=== PATIENT | female | born 1975 | race Caucasian/White ===

== ENCOUNTER 2021-11-14 14:48 | Emergency (ER) | payer OTHER, SELFPAY ==
[2021-11-14 15:37] VITALS: BP 154/93; PULSE 80; RESP 18; TEMP 36.6; O2SAT 100; BMI 20.5
--- NOTE | 2021-11-14 16:20 | USR_ITS ---
PROCEDURE INFORMATION: Exam: US Duplex Left Lower Extremity Veins, Limited Exam date and time: 11/14/2021 4:43 PM Age: 45 years old Clinical indication: Pain; Leg, lower; Left; Prior surgery; Surgery date: 1-6 months; Surgery type: Venous ablation in July 2021. ; Additional info: Redness, swelling, palpable cord TECHNIQUE: Imaging protocol: Real-time Duplex ultrasound of the Left Lower Extremity with 2-D rodriguez scale, color Doppler flow and spectral waveform analysis with image documentation. Limited exam focused on the left lower extremity veins. COMPARISON: US pelvic with transvaginal 09/27/2015 11:04 AM FINDINGS: Left deep veins: Unremarkable. The common femoral, femoral, proximal profunda femoral and popliteal veins are patent without thrombus. Normal Doppler waveforms. Normal compressibility and/or augmentation response. Left superficial veins: Superficial thrombus within the great saphenous vein proximal to the great saphenous vein common femoral vein junction extending through the calf, as well as within a varicosity within the left calf. Soft tissues: Unremarkable. US/CV venous duplex [facility] [id number] IMPRESSION: No evidence of deep vein thrombosis. Superficial thrombus within the great saphenous vein within a varicosity within the left calf.
--- NOTE | 2021-11-14 16:21 | ED_ITS ---
Documented by User: [email or web address] Herrera 11/14/21 16:46 HPI - Extremity Problem General: Chief complaint: Extremity Problem,Nontraumatic Stated complaint: poss bloodclot Time Seen by Provider: 11/14/21 15:08 Source: patient Mode of arrival: ambulatory Limitations: no limitations History of Present Illness: Patient is a nice 45-year-old female presents to ED today with complaint of left lower extremity area that is red and sore to the touch. Patient states while at work she began developing a burning sensation to her left lower leg and immediately began noticing some redness and swelling. Patient states she does have a history of blood clots when she was 17 years old. She states she is not currently on anticoagulation. Patient states she did have some type of varicose vein procedure performed to that leg several months ago. She is not having any shortness of breath or difficulty breathing. MD Complaint: extremity pain Onset (ago): hour(s) Pain Consistency: constant Location: left and lower extremity Radiation: none Relieving factors: nothing Exacerbating factors: nothing Associated symptoms: Reports no associated symptoms; Deny chest pain or fever(s) Review of Systems Const: Denies: fever(s), chills, body aches, fatigue or malaise Card: Denies: chest pain Resp: Denies: dyspnea GI: Denies: abdominal pain Musc: Reports: extremity pain; Denies: neck pain, back pain, joint pain, joint swelling, joint redness, joint warmth or limited range of motion Neuro: Denies: headache(s), numbness in extremities, weakness in extremities or sensory changes [facility] ED PFSH: Medical History Bipolar I disorder, moderate, current or most recent episode manic, with anxious distress Chronic post-traumatic stress disorder Generalized anxiety disorder Nicotine dependence, cigarettes, uncomplicated Opioid dependence, in remission Physical Exam Const: COMMON NORMALS: no acute distress, average body habitus, patient oriented x3, no limitations, healthy appearing, alert and well nourished GENERAL APPEARANCE: cooperative ORIENTATION/CONSCIOUSNESS: Yes awake, Yes oriented to person, Yes oriented to place and Yes oriented to time Resp: COMMON NORMALS: normal respiratory effort and clear to auscultation bilaterally AUSCULTATION: clear to auscultation bilaterally Cardio: COMMON NORMALS: regular rate and regular rhythm RATE: regular rate RHYTHM: regular rhythm Extremity: COMMON NORMALS: full ROM, capillary refill normal, no joint enlargement, no clubbing, cyanosis or edema and no pedal edema GENERAL: Yes normal exam except as noted EXTREMITY IMAGE (FRONT): 1. area of redness/warmth/palpable cord Neuro: COMMON NORMALS: patient oriented x3, moves all extremities, no focal motor deficits, no sensory deficits noted and gait normal SENSORI UM/ORIENTATION: Yes alert, Yes oriented to person, Yes oriented to place and Yes oriented to time Course Vital Signs: Vital signs: Vital Signs Temperature 97.9 F 11/14/21 15:37 Pulse Rate 80 11/14/21 15:37 Respiratory Rate 18 11/14/21 15:37 Blood Pressure 154/93 11/14/21 15:37 Pulse Oximetry 100 11/14/21 15:37 Discharge Plan Discharge Patient Disposition: Home Clinical Impression: Superficial thrombophlebitis Qualifiers: Superficial thrombophlebitis-Involved body area: lower extremity Laterality: left Qualified Code(s): I80.02 - Phlebitis and thrombophlebitis of superficial vessels of left lower extremity Condition: Stable Prescriptions: New cephalexin 500 mg capsule 500 mg PO TID 7 Days Qty: 21 0RF naproxen 500 mg tablet 500 mg PO BID Qty: 20 0RF No Action gabapentin 300 mg capsule 300 mg PO BID Qty: 60 0RF Rx Instructions: Take one capsule twice per day lamotrigine [Lamictal] 100 mg tablet 100 mg PO .morning Qty: 14 0RF Rx Instructions: Take one tablet every morning propranolol 10 mg tablet 10 mg PO TID Qty: 270 2RF Rx Instructions: One tablet three times per day Discharge Orders: Discharge ED (Routine); Ordered 11/14/21 Ordered By: Oliverio Godwin Referrals: Shimon Evans MD [Primary Care Provider] - Discharge Diet: Usual diet Discharge Activity: Increase activity as tolerated Patient Instructions: Superficial Thrombophlebitis (ED) Activity Restrictions/Additional Instructions: Wear a compression sock. Take naproxen twice a day for pain and inflammation. Use antibiotic cephalexin 500 mg 3 times a day for the next 7 days. Follow-up with primary care in 3 to 5 days for recheck. Return to ER for new concerns. Sign Out Sign Out Data: Patient Sign Out occurred on 11/14/21 at 16:59. Patient's care was discussed, and care was transferred from to Oliverio Godwin. Coding Level of Care Code ED Datawarehouse Developer for [employer] Fwd Exam Detailed Documented by User: [email or web address] Tom 11/14/21 17:18 HPI - Extremity Problem General: Chief complaint: Extremity Problem,Nontraumatic Stated complaint: poss bloodclot Time Seen by Provider: 11/14/21 15:08 PFSH ED PFSH: Medical History Bipolar I disorder, moderate, current or most recent episode manic, with anxious distress Chronic post-traumatic stress disorder Generalized anxiety disorder Nicotine dependence, cigarettes, uncomplicated Opioid dependence, in remission Physical Exam Extremity: EXTREMITY IMAGE (FRONT): 1. area of redness/warmth/palpable cord Course Vital Signs: Vital signs: Vital Signs Temperature 97.9 F 11/14/21 15:37 Pulse Rate 80 11/14/21 15:37 Respiratory Rate 18 11/14/21 15:37 Blood Pressure 154/93 11/14/21 15:37 Pulse Oximetry 100 11/14/21 15:37 MDM - Extremity (Nontraumatic) Medical Decision Making I received this patient from Bhargavi Goyal PA-C. We were awaiting ultrasound report for DVT rule out. Patient has some pain and tenderness to the left calf with palpable ropiness. Differential diagnosis include DVT, superficial thrombophlebitis, cellulitis. Ultrasound of the extremity noted no DVT. We will treat patient for a superficial thrombophlebitis with cephalexin 503 times a day for 7 days and naproxen. Patient was encouraged to use compression socks, Tylenol for further pain, and follow-up with primary care. Patient reported understanding. Discharge Plan Discharge Patient Disposition: Home Clinical Impression: Superficial thrombophlebitis Qualifiers: Superficial thrombophlebitis-Involved body area: lower extremity Laterality: left Qualified Code(s): I80.02 - Phlebitis and thrombophlebitis of superficial vessels of left lower extremity Condition: Stable Prescriptions: New cephalexin 500 mg capsule 500 mg PO TID 7 Days Qty: 21 0RF naproxen 500 mg tablet 500 mg PO BID Qty: 20 0RF No Action gabapentin 300 mg capsule 300 mg PO BID Qty: 60 0RF Rx Instructions: Take one capsule twice per day lamotrigine [Lamictal] 100 mg tablet 100 mg PO .morning Qty: 14 0RF Rx Instructions: Take one tablet every morning propranolol 10 mg tablet 10 mg PO TID Qty: 270 2RF Rx Instructions: One tablet three times per day Discharge Orders: Discharge ED (Routine); Ordered 11/14/21 Ordered By: Oliverio Godwin Referrals: Shimon Evans MD [Primary Care Provider] - Discharge Diet: Usual diet Discharge Activity: Increase activity as tolerated Patient Instructions: Superficial Thrombophlebitis (ED) Activity Restrictions/Additional Instructions: Wear a compression sock. Take naproxen twice a day for pain and inflammation. Use antibiotic cephalexin 500 mg 3 times a day for the next 7 days. Follow-up with primary care in 3 to 5 days for recheck. Return to ER for new concerns. Sign Out Sign Out Data: Patient Sign Out occurred on 11/14/21 at 16:59. Patient's care was discussed, and care was transferred from to Oliverio Godwin. Coding Level of Care Code ED Datawarehouse Developer for Johanag Fwd Exam Detailed
== END 2021-11-14 17:24 | disposition home or self-care (01) ==
PROVIDERS: Emergency Provider Nurse Practitioner Family; PCP Family Medicine
DX: I80.02 Phlebitis and thrombophlebitis of superficial vessels of left lower extremity (principal); M79.662 Pain in left lower leg; M79.89 Other specified soft tissue disorders
CPT/HCPCS: 93971; 99283